=== PATIENT | female | born 1990 | race American Indian/Alaskan Native ===

== ENCOUNTER 2020-05-20 14:56 | Emergency (ER) | payer SELFPAY ==
--- NOTE | 2020-05-20 15:50 | Emergency Department Report ---
ED Female HPI - General Chief complaint: Urogenital-Female Stated complaint: UTI Time Seen by Provider: 05/20/20 15:46 Source: patient Mode of arrival: Ambulatory Limitations: No Limitations - History of Present Illness Initial comments: Patient is a 30-year-old female presents emergency room with complaints of UTI. States for the last few days she has had urinary frequency, urinary urgency, odor to her urine, suprapubic abdominal pressure, lower back discomfort. She denies any dysuria, vaginal discharge, fever, nausea, vomiting, diarrhea. Past medical history of asthma. Allergy to penicillin. Last menstrual cycle 04/21/2020. She denies any concerns for STDs. - Related Data Previous Rx's Medication Instructions Recorded Last Taken Type Ciprofloxacin HCl [Ciprofloxacin 500 mg PO BID 7 Days #28 tablet 05/20/20 Unknown Rx TAB] Fluconazole [Diflucan TAB] 150 mg PO QDAY 1 Days #3 tablet 05/20/20 Unknown Rx Phenazopyridine [Pyridium] 100 mg PO TID #9 tab 05/20/20 Unknown Rx Allergies Allergy/AdvReac Type Severity Reaction Status Date / Time Penicillins Allergy Rash Verified 05/20/20 15:04 ED Review of Systems ROS: Stated complaint: UTI Other details as noted in HPI Comment: All other systems reviewed and negative ED Past Medical Hx - Past Medical History Previous Medical History?: Yes Hx Asthma: Yes - Surgical History Past Surgical History?: No - Medications Home Medications: Home Medications Medication Instructions Recorded Confirmed Last Taken Type Ciprofloxacin HCl [Ciprofloxacin 500 mg PO BID 7 Days #28 tablet 05/20/20 Unknown Rx TAB] Fluconazole [Diflucan TAB] 150 mg PO QDAY 1 Days #3 tablet 05/20/20 Unknown Rx Phenazopyridine [Pyridium] 100 mg PO TID #9 tab 05/20/20 Unknown Rx ED Physical Exam - General Limitations: No Limitations General appearance: alert, in no apparent distress - Head Head exam: Present: atraumatic, normocephalic - Eye Eye exam: Present: normal appearance - ENT ENT exam: Present: mucous membranes moist - Respiratory Respiratory exam: Present: normal lung sounds bilaterally. Absent: respiratory distress, wheezes, rales, rhonchi, stridor, chest wall tenderness, accessory muscle use, decreased breath sounds, prolonged expiratory - Cardiovascular Cardiovascular Exam: Present: regular rate, normal rhythm, normal heart sounds. Absent: systolic murmur, diastolic murmur, rubs, gallop - GI/Abdominal GI/Abdominal exam: Present: soft, normal bowel sounds. Absent: distended, tenderness, guarding, rebound, rigid - Back Exam Back exam: Absent: CVA tenderness (R), CVA tenderness (L) - Neurological Exam Neurological exam: Present: alert, oriented X3 - Psychiatric Psychiatric exam: Present: normal affect, normal mood - Skin Skin exam: Present: warm, dry, intact ED Course Vital Signs 05/20/20 05/20/20 15:03 17:00 Temperature 98.4 F Pulse Rate 91 H 82 Respiratory 16 18 Rate Blood Pressure 122/79 Blood Pressure 124/72 [Left] O2 Sat by Pulse 100 100 Oximetry ED Medical Decision Making - Lab Data Lab Results 05/20/20 Range/Units 15:40 Urine Color Yellow (Yellow) Urine Turbidity Cloudy (Clear) Urine pH 6.0 (5.0-7.0) Ur Specific [place] 1.018 (1.003-1.030) Urine Protein 100 mg/dl (Negative) mg/dL Urine Glucose (UA) Neg (Negative) mg/dL Urine Ketones Neg (Negative) mg/dL Urine Blood Mod (Negative) Urine Nitrite Neg (Negative) Urine Bilirubin Neg (Negative) Urine Urobilinogen 4.0 (<2.0) mg/dL Ur Leukocyte Esterase Lg (Negative) Urine WBC (Auto) > 182.0 H (0.0-6.0) /HPF Urine RBC (Auto) > 182.0 (0.0-6.0) /HPF U Epithel Cells (Auto) 3.0 (0-13.0) /HPF Urine Bacteria (Auto) 2+ (Negative) /HPF Urine Mucus Few /HPF Urine Yeast (Budding) 1+ /HPF Urine HCG, Qual Negative (Negative) - Medical Decision Making Patient is a 30-year-old female presents emergency room with complaints of UTI. States for the last few days she has had urinary frequency, urinary urgency, odor to her urine, suprapubic abdominal pressure, lower back discomfort. She denies any dysuria, vaginal discharge, fever, nausea, vomiting, diarrhea. Past medical history of asthma. Allergy to penicillin. Last menstrual cycle 04/21/2020. She denies any concerns for STDs. Vitals are normal. No abdominal tenderness or CVA tenderness on exam. Urine is negative. UA shows evidence of significant UTI, there is also yeast present in the urine. Discussed results with patient and answered questions. Patient given IM ceftriaxone while in the emergency department and was observed without any reaction. Patient given prescription for Cipro, fluconazole, Pyridium. Advised patient Take medication as prescribed. Take antibiotics with food. Increase your water intake over the next several days. Follow-up with your primary care doctor please have your urine retested for clearance of bacteria. Return to emergency room for any new or worsening symptoms. Critical care attestation.: If time is entered above; I have spent that time in minutes in the direct care of this critically ill patient, excluding procedure time. ED Disposition Clinical Impression: Vulvovaginal candidiasis UTI (urinary tract infection) Qualifiers: Urinary tract infection type: acute cystitis Hematuria presence: with hematuria Qualified Code(s): N30.01 - Acute cystitis with hematuria Disposition: TO HOME OR SELFCARE Is pt being admited?: No Does the pt Need Aspirin: No Condition: Stable Instructions: Vaginal Yeast Infection, Adult, Urinary Tract Infection, Adult, [id number] Additional Instructions: Take medication as prescribed. Take antibiotics with food. Increase your water intake over the next several days. Follow-up with your primary care doctor please have your urine retested for clearance of bacteria. Return to emergency room for any new or worsening symptoms. Prescriptions: Ciprofloxacin HCl [Ciprofloxacin TAB] 500 mg PO BID 7 Days #28 tablet Fluconazole [Diflucan TAB] 150 mg PO QDAY 1 Days #3 tablet Phenazopyridine [Pyridium] 100 mg PO TID #9 tab Referrals: PRIMARY CARE, [Primary Care Provider] - 2-3 Days Time of Disposition: 16:43 Print Language: GUAMANIAN
[2020-05-20 16:30] LABS: Bacteria,Urine 2+ /HPF (Negative); Bilirubin,Urine NEG (Negative); Blood,Urine MOD (Negative); Color,Urine Yellow (Yellow); Mucus,Urine FEW /HPF
[2020-05-20 16:32] LABS: RBC,Urine > 182.0 /HPF (0.0-6.0); WBC,Urine > 182.0 /HPF (0.0-6.0)
[2020-05-20] MEDS ORDERED: LIDOCAINE-MPF (1%) 10 MG/1 ML VIAL 5 ML INFILTRATI ONE (16:36)
[2020-05-20 16:41] LABS: HCG Qualitative,Urine Negative (Negative)
[2020-05-20 17:32] VITALS: BP 124/72
== END 2020-05-20 17:32 | disposition home or self-care (01) ==
LOC: ED 14:56
DX: N39.0 Urinary tract infection, site not specified (principal); B37.3 Candidiasis of vulva and vagina; J45.909 Unspecified asthma, uncomplicated; Z79.899 Other long term (current) drug therapy; Z88.0 Allergy status to penicillin
CPT/HCPCS: 81001; 81025; 87086; 96372; 99283; J0696